=== PATIENT | male | born 1955 | race Caucasian/White ===

== ENCOUNTER 2017-02-16 16:43 | Inpatient (IN) | payer MEDICAID ==
[~2017-02-16] VITALS: Ht 175.3 cm; Wt 62.2 kg
[~2017-02-16 16:43] MED LIST: AMYL-13 PO; BENZ-196 PO; CLIN300C2 PO; ELA50 PO; FOLI1TAB19 PO; LANTUS SUBQ; LISI10TA11 PO; METF500T7 PO; METO25TA PO; OMEP20TC10 PO; SPIR25TA PO; TRAM50TA94 PO; [UNRECOGNIZED DRUG - CODE] PO
[2017-02-16 17:04] VITALS: BP 116/78
[2017-02-16 18:24] LABS: BASOPHILS # (AUTO) 0.1 K/uL (0.00-0.22); BASOPHILS % (AUTO) 1.5 % (0.0-2.0); EOSINOPHILS # (AUTO) 0.5 K/uL (0-0.4); EOSINOPHILS % (AUTO) 6.4 % (0.0-4.0); HEMATOCRIT 31.8 % (36-52); LYMPHOCYTES # (AUTO) 1.7 K/uL (2.0-11.5); MEAN CORPUSCULAR HEMOGLOBIN 26 pg (27-31); MEAN CORPUSCULAR HGB CONC 32 g/dL (33-37); MEAN CORPUSCULAR VOLUME 82 fL (80-94); MONOCYTES # (AUTO) 0.2 K/uL (0.8-1.0); MONOCYTES % (AUTO) 3.4 % (1.7-9.3); NEUTROPHILS # (AUTO) 4.7 K/uL (1.8-7.7); NEUTROPHILS % (AUTO) 64.7 % (42.2-75.2); PLATELET COUNT (AUTO) 645 K/uL (140-450); RED BLOOD CELL COUNT(AUTO) 3.89 MIL/uL (4.20-6.10); RED CELL DISTRIBUTION WIDTH 14.1 % (11.6-13.7); WHITE BLOOD COUNT (AUTO) 7.2 K/uL (4.8-10.8)
[2017-02-16 18:42] LABS: ALBUMIN 3.4 g/dL (3.4-5.0); ANION GAP 15.5 (8-16); CALCIUM 9.1 mg/dL (8.5-10.1); CARBON DIOXIDE 22.9 mmol/L (21-32); CREATININE 1.2 mg/dL (0.6-1.3); POTASSIUM 5.4 mmol/L (3.5-5.1); TOTAL BILIRUBIN 0.2 mg/dL (0.0-1.0); TOTAL PROTEIN, SERUM 7.5 g/dL (6.4-8.2)
[2017-02-16 18:44] LABS: PARTIAL THROMBOPLASTIN TIME 29.7 secs (22-35.6); PROTHROMBIN TIME 9.3 secs (10.8-13.4)
[2017-02-16 18:47] LABS: LACTIC ACID 2.3 mmol/L (0.4-2.0)
--- NOTE | 2017-02-16 18:55 | NUR ---
Patient ambulated to bed 05.
--- NOTE | 2017-02-16 19:04 | NUR ---
PER PATIENT CAME IN SUGGESTED BY WOUND RN WHO VISITS HIM TO GET ORDER FOR ANTIBIOTIC.PT WITH WOUND BILATERAL FEET WITH DRESSING DRY AND INTACT.
[2017-02-16] MEDS ORDERED: KETOROLAC 30 MG/ML VIAL IVP ONE (19:35)
[2017-02-16] MEDS ORDERED: PIPERACILLIN/TAZOBACTAM 3.375 GM in DEXTROSE 5% 50 ML IV ONE (19:35)
[2017-02-16] MEDS ORDERED: NACL 0.9% 2,000 ML IV ONE (19:35)
[2017-02-16] MEDS ORDERED: NACL 0.9% 500 ML IV ONE (19:45)
[2017-02-16] MEDS ORDERED: PIPERACILLIN/TAZOBACTAM 3.375 GM VIAL IV ONE (19:57)
--- NOTE | 2017-02-16 21:04 | NUR ---
Patient appears to be resting comfortably in bed. Vital Signs within normal limits. Respirations even and unlabored.
[2017-02-16] MEDS ORDERED: LORazepam 2 MG/ML VIAL IVP PRN (21:05)
[2017-02-16] MEDS ORDERED: HYDROcodone/APAP 5/325 MG 1 TAB TAB PO PRN (21:05)
[2017-02-16] MEDS ORDERED: ONDANSETRON 4 MG/2 ML VIAL IVP PRN (21:05)
[2017-02-16] MEDS ORDERED: MORPHINE SULFATE 2 MG/ML SYR IVP PRN (21:05)
--- NOTE | 2017-02-16 21:23 | NUR ---
Patient will be admitted to care of DR. PEARCE. Admited to TELE. Will go to room 109B. Belongings list completed. Report to CHERELLE ALVES.
--- NOTE | 2017-02-16 21:35 | NUR ---
Pt report given to CHERELLE ALVES. Transfer of care at this time.
[2017-02-16 21:38] VITALS: BP 153/87
--- NOTE | 2017-02-16 21:38 | NUR ---
RECEIVED REPORT FROM ED RN FOR CONTINUITY OF CARE. 61 Y.O. MALE ADMITTED WITH DX: LOWER EXTREMITY WOUND/HYPONATREMIA. PATIENT IS A&OX4, DISCUSSED PLAN OF CARE WITH PATIENT AND ORIENTED PT TO ROOM, VERBALIZED UNDERSTANDING. SHIFT ASSESSMENT DONE, VS TAKEN, STABLE. NO S/S OF RESPIRATORY DISTRESS NOTED ON ROOM AIR. PATIENT DENIES PAIN AT THIS TIME. PATIENT HAS WOUNDS TO BILATERAL LOWER EXTREMITY, DRESSING INTACT. NO DRAINAGE NOTED. IV TO LT AC 22 GAUGE PATENT AND INFUSING FLUIDS WELL. MRSA SWAB COLLECTED, WRISTBANDS APPLIED. CALL LIGHT PLACED WITHIN REACH. WILL CONTINUE TO MONITOR.
[2017-02-16] MEDS: NACL 0.9% 1,000 ML IV SCH (22:00)
--- NOTE | 2017-02-16 23:15 | NUR ---
SPOKE TO DR. RODAS REGARDING ORDERS, WILL FOLLOW OUT GIVEN.
[2017-02-16] MEDS ORDERED: INSULIN LISPRO SLIDING SCALE 100 UNITS/ML VIAL SUBQ PRN (23:25)
[2017-02-16] MEDS ORDERED: DEXTROSE 50% 50 ML SYR IVP PRN (23:30)
[2017-02-16] MEDS: AMITRIPTYLINE 50 MG TAB PO SCH (23:30)
[2017-02-16] MEDS: LISINOPRIL 10 MG TAB PO SCH (23:53)
[2017-02-16] MEDS ORDERED: LISINOPRIL 10 MG TAB ONE (23:54)
[2017-02-17] VITALS: BP 158/85
[2017-02-17] MEDS: BLOOD GLUCOSE MONITORING 1 DEV DEV FS SCH ×5 (00:30→20:47)
--- NOTE | 2017-02-17 00:32 | NUR ---
BLOOD SUGAR TAKEN, 127, NO COVERAGE NEEDED. PATIENT IS AWAKE WATCHING TV. NO S/S OF DISTRESS NOTED. CALL LIGHT WITHIN REACH.
[2017-02-17] MEDS: PIPERACILLIN/TAZOBACTAM 3.375 GM in DEXTROSE 5% 50 ML IV SCH ×2 (02:45→05:53)
--- NOTE | 2017-02-17 02:46 | NUR ---
DUE ANTIBIOTICS ADMINISTERED. NO S/S OF DISTRESS OR DISCOMFORT NOTED. WILL CONTINUE TO MONITOR.
[2017-02-17] MEDS ORDERED: PIPERACILLIN/TAZOBACTAM 3.375 GM VIAL IV ONE (02:48)
[2017-02-17] MEDS: KETOROLAC 15 MG/ML VIAL IVP PRN ×2 (02:56→19:44)
[2017-02-17 04:00] VITALS: BP 130/70
--- NOTE | 2017-02-17 04:30 | NUR ---
VS TAKEN, STABLE. PT DOES NOT WANT DRESSING CHANGED AT THIS TIME. CALL LIGHT WITHIN REACH.
--- NOTE | 2017-02-17 05:53 | NUR ---
BLOOD SUGAR TAKEN, 107, NO INSULIN COVERAGE NEEDED. WILL CONTINUE TO MONITOR.
[2017-02-17 06:04] LABS: BASOPHILS % (AUTO) 0.4 % (0.0-2.0); EOSINOPHILS # (AUTO) 0.6 K/uL (0-0.4); EOSINOPHILS % (AUTO) 8.3 % (0.0-4.0); HEMATOCRIT 27.5 % (36-52); HEMOGLOBIN 8.9 g/dL (12.0-18.0); LYMPHOCYTES # (AUTO) 2.8 K/uL (2.0-11.5); LYMPHOCYTES % (AUTO) 38.9 % (20.5-51.1); MEAN CORPUSCULAR HEMOGLOBIN 26 pg (27-31); MEAN CORPUSCULAR HGB CONC 32 g/dL (33-37); MEAN CORPUSCULAR VOLUME 82 fL (80-94); MONOCYTES # (AUTO) 0.5 K/uL (0.8-1.0); MONOCYTES % (AUTO) 7.1 % (1.7-9.3); NEUTROPHILS # (AUTO) 3.2 K/uL (1.8-7.7); NEUTROPHILS % (AUTO) 45.3 % (42.2-75.2); PLATELET COUNT (AUTO) 561 K/uL (140-450); RED BLOOD CELL COUNT(AUTO) 3.36 MIL/uL (4.20-6.10); RED CELL DISTRIBUTION WIDTH 14.4 % (11.6-13.7); WHITE BLOOD COUNT (AUTO) 7.1 K/uL (4.8-10.8)
[2017-02-17 07:12] LABS: ANION GAP 10.7 (8-16); CALCIUM 8.6 mg/dL (8.5-10.1); CREATININE 1.2 mg/dL (0.6-1.3); POTASSIUM 4.7 mmol/L (3.5-5.1)
--- NOTE | 2017-02-17 07:15 | NUR ---
ENDORSED PATIENT TO DAY RN FOR CONTINUITY OF CARE, PATIENT IS IN STABLE CONDITION.
--- NOTE | 2017-02-17 07:17 | NUR ---
RECEIVED REPORT FROM MANAGER TRADING, PT AWAKE ALERT OX4, RESP EVEN UNLABORED ON ROOM AIR, DENIES PAIN AT THIS TIME, BILAT LOWER EXT WOUNDS COVERED WITH DRESSING CLEAN DRY INTACT, IV SITE CLEAR, INFUSING WITHOUT PROBLEM, CALL HANLEY WITHIN REACH, ALL SAFETY MEASURES MET, PT DENIES ANY IMMEDIATE NEEDS, WILL CONTINUE TO MONITOR.
[2017-02-17 07:22] LABS: MAGNESIUM 1.4 mg/dL (1.8-2.4); PHOSPHORUS 5.1 mg/dL (2.5-4.9)
[2017-02-17 07:32] LABS: URIC ACID 4.3 mg/dL (2.6-7.2)
[2017-02-17 07:42] VITALS: BP 156/77
--- NOTE | 2017-02-17 07:57 | NUR ---
PATIENT HAS BEEN SCREENED AND CATEGORIZED HIGH NUTRITION RISK. PATIENT WILL BE SEEN WITHIN 1-2 DAYS OF ADMISSION. 02/17/17-02/18/[address]
[2017-02-17] MEDS: PANTOPRAZOLE 40 MG INJ VIAL IVP SCH (08:29)
[2017-02-17] MEDS: metFORMIN 500 MG TAB PO SCH ×2 (08:30→17:34)
[2017-02-17] MEDS: FOLIC ACID 1 MG TAB PO SCH (08:31)
[2017-02-17] MEDS: METOPROLOL 25 MG TAB PO SCH ×2 (08:31→20:42)
[2017-02-17] MEDS: SPIRONOLACTONE 25 MG TAB PO SCH ×2 (08:31→20:42)
[2017-02-17] MEDS: LISINOPRIL 10 MG TAB PO SCH (08:31)
[2017-02-17] MEDS: AMYLASE/LIPASE/PROTEASE 1 CAPDR PO SCH ×3 (08:32→17:35)
[2017-02-17] MEDS: NICOTINE TRANSD SYS 21 MG/24 HR PATCH TD SCH (08:36)
[2017-02-17] MEDS: NACL 0.9% 1,000 ML IV SCH (09:33)
--- NOTE | 2017-02-17 09:42 | NUR ---
PT RESTING QUIETLY IN NAD, REPORTS PAIN BETTER THAN BEFORE NOW 02/06, PT DENIES ANY IMMEDIATE NEEDS, PT AWARE OF NEEDING URINE SAMPLE IN CUP, CALL HANLEY WITHIN REACH, ALL SAFETY MEASURES MET, WILL CONTINUE TO MONITOR.
[2017-02-17] MEDS ORDERED: DEXTROSE 50% 50 ML SYR IVP PRN (10:25)
[2017-02-17 10:29] LABS: CHOL/HDL RATIO 4.4 (1-4.5)
--- NOTE | 2017-02-17 10:30 | NUR ---
WOUND CARE EVALUATION NOTES: REASON FOR EVALUATION: ACUTE/CHRONIC BLE ULCERS COMPLETE SKIN ASSESSMENT DONE ON THIS 61 Y/O MALE PATIENT FROM HOME TO [facility], WITH INITIAL DIAGNOSIS OF BLE WOUND, HYPONATREMIA AND HYPOKALEMIA. PAST MEDICAL HISTORY INCLUDE DIABETES, CHF, CHRONIC PANCREATITIS AND CHRONIC BLE DIABETIC FEET ULCERS. ALL ABOVE INFORMATION WAS OBTAINED FROM THE ADMISSION H&P AND THE PATIENT HIMSELF. LABS INCLUDE WBC 8.2, H/H 9.4/29.1, GLUCOSE 118, ALBUMIN 3.4, PT/INR 9.3/1.0 AND PTT 29.7. CURRENT MEDS INCLUDE MULTIVITAMINS, INSULIN, NORCO, ZOSYN, HEPARIN AND KETOROLAC. PATIENT IS AWAKE, ALERT, ORIENTED TO PERSON, PLACE, DATE AND TIME. SKIN WARM TO TOUCH WNL, TOENAILS ARE LONG, THICKENED AND DISCOLORED, NO EDEMA, NO HAIR GROWTH, BLE DRY AND FLAKY AND +1 BILATERAL PEDAL PULSES. URINE AND BOWEL CONTINENT, ABLE TO USE URINAL AND IS ABLE TO AMBULATE TO THE RESTROOM WELL CLAIMED. ABLE TO TURN SELF WITH NO ASSISTANCE. INITIAL PLAN OF CARE AND PRESSURE PREVENTIVE MEASURES DISCUSSED, ABLE TO VERBALIZE UNDERSTANDING. INTEGUMENTARY: BLE - MULTIPLE VENOUS STASIS ULCERS. FOR EXACT MEASUREMENTS AND DESCRIPTION, PLEASE REFER TO WOUND ASSESSMENT FLOWSHEET RECOMMENDATIONS: -CLEANSE BILATERAL LOWER EXTREMITTIES WITH WOUND CLEANSER, PAT DRY, APPLY THERAHONEY GEL, ADAPTIC, ABD PAD AND WRAP WITH ROSALIE Q DAY AND PRN WITH SOILING/DISPLACEMENT -TURN AND REPOSITION PATIENT Q2H -ASSESS AND MONITOR SKIN CONDITION DURING POSITION CHANGE, PLEASE PAY PARTICULAR ATTENTION TO SACRALCOCCYX, ELBOWS AND HEELS -OFFLOAD BILATERAL HEELS BY PLACING PILLOWS UNDER CALVES AT ALL TIMES, UNLESS OTHERWISE CONTRAINDICATED -KEEP SKIN CLEAN AND DRY AT ALL TIMES. -PODIATRY CONSULT IN PLACE. RECOMMENDATIONS DISCUSSED WITH PRIMARY RN AND RESIDENT PHYSICIAN, DR. SANTOS WILL FOLLOW UP PATIENT Q 7 DAYS AND PRN. PLEASE CONTACT [facility] FOR ANY CONCERNS, QUESTIONS AND CHANGES IN SKIN CONDITION.
[2017-02-17] MEDS ORDERED: MAG SULF 2000 MG/WATER PREMIX 50 ML IV SCH (10:35)
[2017-02-17 10:55] LABS: THYROID STIMULATING HORMONE 1.48 uIU/mL (0.34-3.76)
--- NOTE | 2017-02-17 11:17 | NUR ---
PT RESTING QUIETLY IN NAD, RESP EVEN UNLABORED ON ROOM AIR, NO C/O PAIN AT THIS TIME, URINE SAMPLE COLLECTED, MAGNESIUM STARTED PER ORDER, IV SITE CLEAR, CALL HANLEY WITHIN REACH, ALL SAFETY MEASURES ENSURED, WILL CONTINUE TO MONITOR.
[2017-02-17 12:00] VITALS: BP 145/76
[2017-02-17 12:14] LABS: APPEARANCE,URINE CLEAR (CLEAR); BILIRUBIN,URINE NEGATIVE (NEGATIVE); BLOOD, URINE NEGATIVE (NEGATIVE); COLOR,URINE YELLOW (YELLOW); LEUKOCYTE ESTERASE ,URINE NEGATIVE (NEGATIVE); NITRITE, URINE NEGATIVE (NEGATIVE); PROTEIN,URINE NEGATIVE (NEGATIVE); UGLUCOSE NEGATIVE (NEGATIVE); UROBILINOGEN,URINE 0.2 EU/dL (0.2 - 1)
[2017-02-17 12:36] LABS: AMPHETAMINE, URINE NEG. ng/ml (NEG <=1000); BARBITURATE, URINE NEG. ng/ml (NEG <=200); BENZODIAZEPINE, URINE NEG. ng/mL (NEG <=200); CANNABINOID, URINE NEG. ng/mL (NEG <=50); COCAINE, URINE NEG. ng/mL (NEG <=300); OPIATE, URINE NEG. ng/mL (NEG <=2000); PHENCYCLIDINE SCREEN,URINE NEG. ng/mL (NEG <=25)
[2017-02-17 12:49] LABS: BASOPHILS % (AUTO) 0.6 % (0.0-2.0); EOSINOPHILS # (AUTO) 0.5 K/uL (0-0.4); EOSINOPHILS % (AUTO) 5.6 % (0.0-4.0); HEMATOCRIT 29.1 % (36-52); HEMOGLOBIN 9.4 g/dL (12.0-18.0); LYMPHOCYTES # (AUTO) 1.5 K/uL (2.0-11.5); LYMPHOCYTES % (AUTO) 18.6 % (20.5-51.1); MEAN CORPUSCULAR HEMOGLOBIN 27 pg (27-31); MEAN CORPUSCULAR HGB CONC 32 g/dL (33-37); MEAN CORPUSCULAR VOLUME 82 fL (80-94); MONOCYTES # (AUTO) 0.4 K/uL (0.8-1.0); MONOCYTES % (AUTO) 4.5 % (1.7-9.3); NEUTROPHILS # (AUTO) 5.8 K/uL (1.8-7.7); NEUTROPHILS % (AUTO) 70.7 % (42.2-75.2); PLATELET COUNT (AUTO) 542 K/uL (140-450); RED BLOOD CELL COUNT(AUTO) 3.54 MIL/uL (4.20-6.10); RED CELL DISTRIBUTION WIDTH 14.3 % (11.6-13.7); WHITE BLOOD COUNT (AUTO) 8.2 K/uL (4.8-10.8)
[2017-02-17] MEDS: PIPER/TAZO 3.375GM/D5W PREMIX 50 ML IV SCH ×2 (13:11→17:37)
--- NOTE | 2017-02-17 13:15 | NUR ---
PT RESTING IN BED. NO S/S OF ACUTE DISTRESS. PT DENIES PAIN. IV SITE PATENT AND INTACT. CALL LIGHT WITHIN REACH. SAFETY MEASURES ENSURED. WILL CONTINUE TO MONITOR.
--- NOTE | 2017-02-17 13:26 | NUR ---
02/17/17 RD INITIAL ASSESSMENT COMPLETED PLEASE REFER TO NUTRITION ASSESSMENT UNDER CARE ACTIVITY FOR ESTIMATED NUTRITIONAL NEEDS. RD RECOMMENDATIONS: 1. CONTINUE ON SOFT CCHO 60 GM DIET TOLERATED. 2. INCREASE PROTEIN NEEDS FOR WOUND HEALING. 3. RD WILL F/U 3-5 DAYS; MODERATE RISK. ELBA ESCALONA RD
[2017-02-17 13:57] LABS: CALCIUM 8.7 mg/dL (8.5-10.1); CARBON DIOXIDE 23.6 mmol/L (21-32); CREATININE 1.1 mg/dL (0.6-1.3); POTASSIUM 5.6 mmol/L (3.5-5.1)
--- NOTE | 2017-02-17 14:22 | NUR ---
SPOKE WITH JOSE FROM [facility] . HE IS [facility] PATIENT. FAXED INITIAL REVIEW TO [phone] PHONE JOSE [phone]. RECEIVED CALL FROM OGALLALA FROM [facility]. THE PATIENT IS ON THEIR SERVICE PHONE [phone].
[2017-02-17] MEDS: HYDROcodone/APAP 5/325 MG 1 TAB TAB PO PRN ×2 (15:02→22:27)
[2017-02-17 16:00] VITALS: BP 131/97
--- NOTE | 2017-02-17 16:16 | NUR ---
PT RESTING IN BED. NO S/S OF ACUTE DISTRESS. PT DENIES PAIN. CALL LIGHT WITHIN REACH. SAFETY MEASURES ENSURED. WILL CONTINUE TO MONITOR.
[2017-02-17] MEDS ORDERED: THERAHONEY GEL 42.5 GM TP PRN (18:10)
[2017-02-17] MEDS ORDERED: THERAHONEY GEL 42.5 GM TP SCH (18:14)
--- NOTE | 2017-02-17 19:15 | NUR ---
ENDORSED PT CARE TO JBOSS ARCHITECT RN, PT REMAINS IN STABLE CONDITION.
--- NOTE | 2017-02-17 19:16 | NUR ---
RECEIVED REPORT FROM DAY RN FOR CONTINUITY OF CARE. PATIENT IS A&OX4, DISCUSSED PLAN OF CARE WITH PATIENT, VERBALIZED UNDERSTANDING. SHIFT ASSESSMENT DONE, VS TAKEN, STABLE. NO S/S OF RESPIRATORY DISTRESS NOTED ON ROOM AIR. PATIENT C/O LOWER EXTREMITY PAIN, WILL MEDICATE PER MD ORDER. IV TO LT AC 22 GAUGE PATENT AND FLUSHED. PATIENT HAS WOUNDS TO BILATERAL ANKLES AND FEET, DRESSING INTACT, NO DRAINAGE NOTED. CALL LIGHT PLACED WITHIN REACH. SAFETY PRECAUTIONS ENFORCED. WILL CONTINUE TO MONITOR.
[2017-02-17 20:00] VITALS: BP 140/74
[2017-02-17] MEDS: MAGNESIUM OXIDE 400 MG TAB PO SCH (20:41)
[2017-02-17] MEDS: AMITRIPTYLINE 50 MG TAB PO SCH (20:41)
--- NOTE | 2017-02-17 20:44 | NUR ---
DUE MEDICATIONS ADMINISTERED, TOLERATED WELL. BLOOD SUGAR 168, PT STATES HE DOES NOT WANT TO TAKE LEVEMIR, WILL ADMINISTER SLIDING SCALE COVERAGE AND REASSESS IN AM PER MD ORDER. CALL LIGHT WITHIN REACH. SAFETY PRECAUTIONS ENFORCED.
[2017-02-17] MEDS: INSULIN LISPRO SLIDING SCALE 100 UNITS/ML VIAL SUBQ PRN (20:51)
[2017-02-17] MEDS: INSULIN DETEMIR 100 UNITS/ML 10 ML VIAL SUBQ SCH (20:51)
[2017-02-17] MEDS ORDERED: SODIUM POLYSTYRENE 15 GM/60 ML UDBTL PO ONE (21:15)
--- NOTE | 2017-02-17 22:27 | NUR ---
PT C/O HEADACHE, MEDICATED PER MD ORDER. EMPTIED URINAL 400 ML LIGHT YELLOW URINE. CALL LIGHT WITHIN REACH. WILL CONTINUE TO MONITOR.
[2017-02-18] VITALS: BP 158/75
--- NOTE | 2017-02-18 00:12 | NUR ---
VS TAKEN. PATIENT IS ASLEEP. NO S/S OF DISTRESS OR DISCOMFORT NOTED. WILL CONTINUE TO MONITOR.
[2017-02-18] MEDS: PIPER/TAZO 3.375GM/D5W PREMIX 50 ML IV SCH ×5 (00:57→23:36)
[2017-02-18] MEDS: MORPHINE SULFATE 2 MG/ML SYR IVP PRN ×5 (01:42→21:28)
--- NOTE | 2017-02-18 01:48 | NUR ---
PT C/O 06/08 PAIN MEDICATED PER MD ORDER. CALL LIGHT WITHIN REACH.
[2017-02-18 04:00] VITALS: BP 138/70
--- NOTE | 2017-02-18 04:02 | NUR ---
VS TAKEN, STABLE. PATIENT IS SLEEPING. NO S/S OF DISTRESS OR DISCOMFORT NOTED. WILL CONTINUE TO MONITOR.
--- NOTE | 2017-02-18 06:00 | NUR ---
PT AMBULATING TO RESTROOM, HAD LARGE BOWEL MOVEMENT.
[2017-02-18 06:02] LABS: BASOPHILS % (AUTO) 0.6 % (0.0-2.0); EOSINOPHILS # (AUTO) 0.5 K/uL (0-0.4); EOSINOPHILS % (AUTO) 7.1 % (0.0-4.0); HEMATOCRIT 28.9 % (36-52); HEMOGLOBIN 9.2 g/dL (12.0-18.0); LYMPHOCYTES # (AUTO) 2.1 K/uL (2.0-11.5); LYMPHOCYTES % (AUTO) 27.5 % (20.5-51.1); MEAN CORPUSCULAR HEMOGLOBIN 26 pg (27-31); MEAN CORPUSCULAR HGB CONC 32 g/dL (33-37); MEAN CORPUSCULAR VOLUME 82 fL (80-94); MONOCYTES # (AUTO) 0.4 K/uL (0.8-1.0); MONOCYTES % (AUTO) 4.9 % (1.7-9.3); NEUTROPHILS # (AUTO) 4.5 K/uL (1.8-7.7); NEUTROPHILS % (AUTO) 59.9 % (42.2-75.2); PLATELET COUNT (AUTO) 556 K/uL (140-450); RED BLOOD CELL COUNT(AUTO) 3.51 MIL/uL (4.20-6.10); RED CELL DISTRIBUTION WIDTH 14.3 % (11.6-13.7); WHITE BLOOD COUNT (AUTO) 7.5 K/uL (4.8-10.8)
[2017-02-18] MEDS: BLOOD GLUCOSE MONITORING 1 DEV DEV FS SCH ×4 (06:21→20:27)
[2017-02-18 06:26] LABS: ANION GAP 13.8 (8-16); CARBON DIOXIDE 22.1 mmol/L (21-32); CREATININE 1.1 mg/dL (0.6-1.3); POTASSIUM 4.9 mmol/L (3.5-5.1)
[2017-02-18 06:31] LABS: MAGNESIUM 1.6 mg/dL (1.8-2.4); PHOSPHORUS 3.7 mg/dL (2.5-4.9)
--- NOTE | 2017-02-18 07:22 | NUR ---
ENDORSED PATIENT TO DAY RN FOR CONTINUITY OF CARE, PATIENT IS IN STABLE CONDITION.
--- NOTE | 2017-02-18 07:35 | NUR ---
RECEIVED REPORT FROM JOSELYN VILLARREAL. PT IS A/OX4, PT HAS BILATERAL LOWER EXT. WOUNDS, DRESSING IS DRY, INTACT, IV ON THE LEFT FA, PATENT, INTACT, FLUSHING WELL, NO S/S OF RESPIRATORY DISTRESS OR DISCOMFORT NOTED, SAFETY/FALL PRECAUTIONS ARE IN PLACE, DISCUSSED PLAN OF CARE WITH PT, PT VERBALIZED UNDERSTANDING, CALL LIGHT IS WITHIN REACH, WILL CONTINUE TO MONITOR.
[2017-02-18 08:00] VITALS: BP 150/76
[2017-02-18] MEDS: metFORMIN 500 MG TAB PO SCH ×2 (08:00→17:00)
[2017-02-18] MEDS: MAGNESIUM OXIDE 400 MG TAB PO SCH ×2 (08:17→20:21)
[2017-02-18] MEDS: SPIRONOLACTONE 25 MG TAB PO SCH ×2 (08:17→20:20)
[2017-02-18] MEDS: FOLIC ACID 1 MG TAB PO SCH (08:18)
[2017-02-18] MEDS: LISINOPRIL 10 MG TAB PO SCH (08:18)
[2017-02-18] MEDS: MULTIVITAMIN/MINERALS 1 TAB PO SCH (08:19)
[2017-02-18] MEDS: METOPROLOL 25 MG TAB PO SCH ×2 (08:19→20:20)
[2017-02-18] MEDS: AMYLASE/LIPASE/PROTEASE 1 CAPDR PO SCH ×3 (08:19→17:04)
[2017-02-18] MEDS: PANTOPRAZOLE 40 MG INJ VIAL IVP SCH (08:20)
[2017-02-18] MEDS: NICOTINE TRANSD SYS 21 MG/24 HR PATCH TD SCH (08:32)
[2017-02-18] MEDS: THERAHONEY GEL 42.5 GM TP SCH (08:33)
[2017-02-18] MEDS ORDERED: MAG SULF 2000 MG/WATER PREMIX 50 ML IV SCH (08:35)
[2017-02-18] MEDS: NACL 0.9% 500 ML IV SCH ×3 (08:35→20:49)
--- NOTE | 2017-02-18 09:45 | NUR ---
PT SITTING IN BED WATCHING TV, ALL NEEDS ARE MET, CALL LIGHT WITHIN REACH, WILL CONTINUE TO MONITOR.
[2017-02-18] MEDS: SODIUM CHLORIDE 1 GM TAB PO SCH ×2 (10:01→20:21)
--- NOTE | 2017-02-18 11:49 | NUR ---
PT COMPLAINED OF PAIN IN BOTH ANKLES, 8/10 PAIN LEVEL, WILL MEDICATE PT WITH PRN PAIN MEDICATION AT THIS TIME.
[2017-02-18 12:00] VITALS: BP 155/81
--- NOTE | 2017-02-18 13:00 | NUR ---
BILATERAL LOWER EXT. DRESSING CHANGED, MILD DRAINAGE, PT TOLERATED WELL, NO S/S OF RESPIRATORY DISTRESS OR DISCOMFORT NOTED, CALL LIGHT WITHIN REACH, WILL CONTINUE TO MONITOR.
--- NOTE | 2017-02-18 15:27 | NUR ---
ASSISTED PT TO THE RESTROOM AND BACK INTO BED, CALL LIGHT WITHIN REACH.
[2017-02-18 16:00] VITALS: BP 149/73
--- NOTE | 2017-02-18 17:45 | NUR ---
PT SITTING AT BEDSIDE EATING DINNER, CALL LIGHT WITHIN REACH.
--- NOTE | 2017-02-18 19:10 | NUR ---
ENDORSED PT TO JOSELYN OZUNA. FOR CONTINUITY OF CARE, PT STABLE AT THIS TIME.
--- NOTE | 2017-02-18 19:30 | NUR ---
RECEIVED REPORT FROM ADIN ALVES AT BEDSIDE. PT IS ALERT AWAKE ORIENTED X4. INITIAL ASSESSMENT DONE. NO S/S OF RESPIRATORY DISTRESS OR SOB NOTED. NO C/O PAIN OR ANY DISCOMFORT AT THIS TIME. PLAN OF CARE REVIEWED TO PT AND VERBALIZED UNDERSTANDING. CALL LIGHT WITHIN REACH. WILL CONTINUE TO MONITOR.
[2017-02-18 20:00] VITALS: BP 146/71
[2017-02-18] MEDS: AMITRIPTYLINE 50 MG TAB PO SCH (20:20)
[2017-02-18] MEDS: INSULIN LISPRO SLIDING SCALE 100 UNITS/ML VIAL SUBQ PRN (20:29)
[2017-02-18] MEDS: INSULIN DETEMIR 100 UNITS/ML 10 ML VIAL SUBQ SCH (20:30)
[2017-02-19] VITALS: BP 139/74
--- NOTE | 2017-02-19 00:40 | NUR ---
PT IS SLEEPING RIGHT NOW BUT EASILY AROUSABLE. NO S/S OF ANY DISCOMFORT AT THIS TIME. ALL NEEDS ARE ATTENDED. CALL LIGHT WITHIN REACH. WILL CONTINUE TO MONITOR.
[2017-02-19] MEDS: NACL 0.9% 500 ML IV SCH ×2 (03:20→09:15)
[2017-02-19 04:00] VITALS: BP 135/76
[2017-02-19] MEDS: PIPER/TAZO 3.375GM/D5W PREMIX 50 ML IV SCH ×3 (05:06→17:17)
--- NOTE | 2017-02-19 05:45 | NUR ---
AM CARE RENDERED. BED LINEN CHANGED. INSTRUCTED PT TO REPOSITION. KEPT CLEAN AND DRY. CALL LIGHT WITHIN REACH. WILL CONTINUE TO MONITOR.
[2017-02-19] MEDS: BLOOD GLUCOSE MONITORING 1 DEV DEV FS SCH ×4 (06:20→20:43)
--- NOTE | 2017-02-19 06:21 | NUR ---
CHECK BS AND THE RESULT IS 36. ADMINISTERED D50 50ML ORDERED. CHECKED BS AGAIN AND THE RESULT IS 222. CHARGE NURSE ADELINA NOTIFIED. WILL CONTINUE TO MONITOR.
[2017-02-19 06:47] LABS: ANION GAP 10.6 (8-16); CALCIUM 8.6 mg/dL (8.5-10.1); CARBON DIOXIDE 29.2 mmol/L (21-32); CREATININE 1.1 mg/dL (0.6-1.3); POTASSIUM 4.8 mmol/L (3.5-5.1)
[2017-02-19 06:48] LABS: BASOPHILS % (AUTO) 0.4 % (0.0-2.0); EOSINOPHILS # (AUTO) 0.1 K/uL (0-0.4); EOSINOPHILS % (AUTO) 1.6 % (0.0-4.0); HEMATOCRIT 29.9 % (36-52); HEMOGLOBIN 9.5 g/dL (12.0-18.0); LYMPHOCYTES % (AUTO) 14.9 % (20.5-51.1); MEAN CORPUSCULAR HEMOGLOBIN 26 pg (27-31); MEAN CORPUSCULAR HGB CONC 32 g/dL (33-37); MEAN CORPUSCULAR VOLUME 82 fL (80-94); MONOCYTES # (AUTO) 0.4 K/uL (0.8-1.0); MONOCYTES % (AUTO) 6.8 % (1.7-9.3); NEUTROPHILS # (AUTO) 5.1 K/uL (1.8-7.7); NEUTROPHILS % (AUTO) 76.3 % (42.2-75.2); PHOSPHORUS 4.1 mg/dL (2.5-4.9); PLATELET COUNT (AUTO) 599 K/uL (140-450); RED BLOOD CELL COUNT(AUTO) 3.64 MIL/uL (4.20-6.10); RED CELL DISTRIBUTION WIDTH 14.7 % (11.6-13.7); WHITE BLOOD COUNT (AUTO) 6.6 K/uL (4.8-10.8)
--- NOTE | 2017-02-19 07:20 | NUR ---
PT HAS NO S/S OF ANY DISCOMFORT. PLAN OF CARE ENDORSE TO AM SHIFT NURSE FOR CONTINUITY OF CARE.
--- NOTE | 2017-02-19 07:25 | NUR ---
RECEIVED REPORT FROM JOSELYN OZUNA. PT IS A/OX4, PT HAS BILATERAL LOWER EXT. WOUNDS, DRESSING IS DRY, INTACT, IV ON THE LEFT FA, PATENT, INTACT, FLUSHING WELL, INITIAL ASSESSMENT DONE, NO S/S OF RESPIRATORY DISTRESS OR DISCOMFORT NOTED, SAFETY/FALL PRECAUTIONS ARE IN PLACE, DISCUSSED PLAN OF CARE WITH PT, PT VERBALIZED UNDERSTANDING, CALL LIGHT IS WITHIN REACH, WILL CONTINUE TO MONITOR.
[2017-02-19 08:00] VITALS: BP 114/58
[2017-02-19] MEDS: metFORMIN 500 MG TAB PO SCH ×2 (08:00→17:00)
[2017-02-19] MEDS: LISINOPRIL 10 MG TAB PO SCH (08:09)
[2017-02-19] MEDS: MULTIVITAMIN/MINERALS 1 TAB PO SCH (08:13)
[2017-02-19] MEDS: FOLIC ACID 1 MG TAB PO SCH (08:15)
[2017-02-19] MEDS: MAGNESIUM OXIDE 400 MG TAB PO SCH ×2 (08:15→20:18)
[2017-02-19] MEDS: AMYLASE/LIPASE/PROTEASE 1 CAPDR PO SCH ×3 (08:15→17:18)
[2017-02-19] MEDS: SPIRONOLACTONE 25 MG TAB PO SCH ×2 (08:19→20:17)
[2017-02-19] MEDS: NICOTINE TRANSD SYS 21 MG/24 HR PATCH TD SCH (08:23)
[2017-02-19] MEDS: SODIUM CHLORIDE 1 GM TAB PO SCH (08:23)
[2017-02-19] MEDS: PANTOPRAZOLE 40 MG INJ VIAL IVP SCH (08:24)
[2017-02-19] MEDS: METOPROLOL 25 MG TAB PO SCH ×2 (08:40→20:18)
[2017-02-19] MEDS: THERAHONEY GEL 42.5 GM TP SCH (08:41)
--- NOTE | 2017-02-19 09:30 | NUR ---
PT RESTING IN BED, NO S/S OF RESPIRATORY DISTRESS OR DISCOMFORT NOTED, CALL LIGHT WITHIN REACH, WILL CONTINUE TO MONITOR.
[2017-02-19] MEDS: MORPHINE SULFATE 2 MG/ML SYR IVP PRN ×3 (09:35→22:48)
[2017-02-19 10:13] LABS: TRANSFERRIN 293 mg/dL (200-370)
[2017-02-19 12:00] VITALS: BP 165/83
--- NOTE | 2017-02-19 12:00 | NUR ---
PT COMPLAINED OF PAIN AT TH IV SITE, IV ON LT AC REMOVED, CATHETER TIP INTACT, NEW IV STARTED ON THE LEFT HAND.
[2017-02-19] MEDS: INSULIN LISPRO SLIDING SCALE 100 UNITS/ML VIAL SUBQ PRN ×3 (12:54→20:44)
--- NOTE | 2017-02-19 13:50 | NUR ---
PT RESTING IN BED, WATCHING TV, CALL LIGHT IS WITHIN REACH.
--- NOTE | 2017-02-19 15:30 | NUR ---
PT RESTING IN BED WATCHING TV, ALL NEEDS ARE MET AT THIS TIME, CALL LIGHT WITHIN REACH, WILL CONTINUE TO MONITOR.
[2017-02-19 16:00] VITALS: BP 144/72
--- NOTE | 2017-02-19 17:50 | NUR ---
PT SITTING IN BED WATCHING TV, CALL LIGHT WITHIN REACH.
--- NOTE | 2017-02-19 19:25 | NUR ---
ENDORSED PT TO JOSELYN OZUNA. FOR CONTINUITY OF CARE, PT STABLE AT THIS TIME.
[2017-02-19 20:00] VITALS: BP 146/69
[2017-02-19] MEDS: AMITRIPTYLINE 50 MG TAB PO SCH (20:17)
[2017-02-20] VITALS: BP 136/71
[2017-02-20] MEDS: DEXT 5% /NACL 0.9% 1,000 ML IV SCH ×2 (00:12→12:35)
[2017-02-20] MEDS: PIPER/TAZO 3.375GM/D5W PREMIX 50 ML IV SCH ×5 (00:12→23:43)
[2017-02-20 04:00] VITALS: BP 138/74
--- NOTE | 2017-02-20 05:30 | NUR ---
AM CARE RENDERED. BED LINEN CHANGED. INSTRUCTED PT TO REPOSITION. KEPT CLEAN AND DRY. CALL LIGHT WITHIN REACH. WILL CONTINUE TO MONITOR.
[2017-02-20 06:00] LABS: BASOPHILS # (AUTO) 0.1 K/uL (0.00-0.22); BASOPHILS % (AUTO) 1.1 % (0.0-2.0); EOSINOPHILS # (AUTO) 0.5 K/uL (0-0.4); EOSINOPHILS % (AUTO) 7.1 % (0.0-4.0); HEMATOCRIT 27.5 % (36-52); HEMOGLOBIN 8.9 g/dL (12.0-18.0); LYMPHOCYTES % (AUTO) 15.3 % (20.5-51.1); MEAN CORPUSCULAR HEMOGLOBIN 26 pg (27-31); MEAN CORPUSCULAR HGB CONC 32 g/dL (33-37); MEAN CORPUSCULAR VOLUME 81 fL (80-94); MONOCYTES # (AUTO) 0.6 K/uL (0.8-1.0); MONOCYTES % (AUTO) 8.7 % (1.7-9.3); NEUTROPHILS # (AUTO) 4.6 K/uL (1.8-7.7); NEUTROPHILS % (AUTO) 67.8 % (42.2-75.2); PLATELET COUNT (AUTO) 553 K/uL (140-450); RED BLOOD CELL COUNT(AUTO) 3.38 MIL/uL (4.20-6.10); RED CELL DISTRIBUTION WIDTH 14.6 % (11.6-13.7); WHITE BLOOD COUNT (AUTO) 6.8 K/uL (4.8-10.8)
[2017-02-20 06:11] LABS: ANION GAP 11.1 (8-16); CALCIUM 8.7 mg/dL (8.5-10.1); CARBON DIOXIDE 27.5 mmol/L (21-32); POTASSIUM 4.6 mmol/L (3.5-5.1)
[2017-02-20 06:16] LABS: PARTIAL THROMBOPLASTIN TIME 27.8 secs (22-35.6); PROTHROMBIN TIME 9.6 secs (10.8-13.4)
[2017-02-20] MEDS: BLOOD GLUCOSE MONITORING 1 DEV DEV FS SCH ×4 (06:34→21:07)
[2017-02-20 06:41] LABS: MAGNESIUM 1.7 mg/dL (1.8-2.4)
--- NOTE | 2017-02-20 07:11 | NUR ---
PT HAS NO S/S OF ANY DISCOMFORT. PLAN OF CARE ENDORSE TO AM SHIFT NURSE FOR CONTINUITY OF CARE.
--- NOTE | 2017-02-20 07:15 | NUR ---
RECEIVED REPORT FROM JOSELYN OZUNA. PT IS A/OX4, PT HAS BILATERAL LOWER EXT. WOUNDS, DRESSING IS DRY, INTACT, IV ON THE LEFT HAND, PATENT, INTACT, FLUSHING WELL, INITIAL ASSESSMENT DONE, NO S/S OF RESPIRATORY DISTRESS OR DISCOMFORT NOTED, SAFETY/FALL PRECAUTIONS ARE IN PLACE, DISCUSSED PLAN OF CARE WITH PT, PT VERBALIZED UNDERSTANDING, CALL LIGHT IS WITHIN REACH, WILL CONTINUE TO MONITOR.
[2017-02-20 08:00] VITALS: BP 156/70
[2017-02-20] MEDS: AMYLASE/LIPASE/PROTEASE 1 CAPDR PO SCH ×3 (08:00→17:18)
[2017-02-20] MEDS ORDERED: NACL 0.9% 500 ML IV SCH (08:35)
[2017-02-20] MEDS: NICOTINE TRANSD SYS 21 MG/24 HR PATCH TD SCH (08:40)
[2017-02-20] MEDS: PANTOPRAZOLE 40 MG INJ VIAL IVP SCH (08:40)
--- NOTE | 2017-02-20 08:40 | NUR ---
DUE MEDS GIVEN, ORAL MEDICATIONS HELD SINCE PT IS NPO, PT TOLERATED WELL, CALL LIGHT WITHIN REACH, WILL CONTINUE TO MONITOR.
[2017-02-20] MEDS: MORPHINE SULFATE 2 MG/ML SYR IVP PRN (08:41)
[2017-02-20] MEDS: METOPROLOL 25 MG TAB PO SCH ×2 (09:00→21:04)
[2017-02-20] MEDS: MAGNESIUM OXIDE 400 MG TAB PO SCH ×2 (09:00→21:04)
[2017-02-20] MEDS: MULTIVITAMIN/MINERALS 1 TAB PO SCH (09:00)
[2017-02-20] MEDS ORDERED: MAG SULF 2000 MG/WATER PREMIX 50 ML IV SCH (09:00)
[2017-02-20] MEDS: INSULIN DETEMIR 100 UNITS/ML 10 ML VIAL SUBQ SCH (09:00)
[2017-02-20] MEDS: FOLIC ACID 1 MG TAB PO SCH (09:00)
[2017-02-20] MEDS: THERAHONEY GEL 42.5 GM TP SCH (09:00)
[2017-02-20] MEDS: SPIRONOLACTONE 25 MG TAB PO SCH ×2 (09:00→21:05)
[2017-02-20] MEDS: LISINOPRIL 10 MG TAB PO SCH (09:00)
--- NOTE | 2017-02-20 10:30 | NUR ---
PT RESTING IN BED WATCHING TV, CALL LIGHT WITHIN REACH, WILL CONTINUE TO MONITOR.
--- NOTE | 2017-02-20 11:17 | NUR ---
PT IS OFF UNIT, TAKEN TO OR FOR PROCEDURE.
[2017-02-20] MEDS ORDERED: BUPIVACAINE-MPF 0.25% 30 ML VIAL INJ ONE (11:37)
--- NOTE | 2017-02-20 12:18 | NUR ---
FAXED CONCURRENT REVIEW TO [facility] [phone] PHONE JOSE [phone]
[2017-02-20] MEDS ORDERED: PROPOFOL 200 MG/20 ML VIAL IV ONE (12:40)
[2017-02-20] MEDS ORDERED: ONDANSETRON 4 MG/2 ML VIAL ONE (12:40)
[2017-02-20] MEDS ORDERED: SEVOFLURANE 250 ML BTL INH ONE (12:40)
[2017-02-20] MEDS ORDERED: fentaNYL 0.05 MG/ML VIAL ONE (12:42)
[2017-02-20] MEDS ORDERED: HYDROmorphone 1 MG/ML AMP IVP PRN (13:00)
[2017-02-20] MEDS ORDERED: ONDANSETRON 4 MG/2 ML VIAL IVP PRN (13:00)
[2017-02-20] MEDS ORDERED: BUPIVACAINE-MPF 0.5% 30 ML VIAL INJ ONE (13:01)
[2017-02-20 14:35] VITALS: BP 155/78
--- NOTE | 2017-02-20 14:35 | NUR ---
PT RETURNED TO UNIT FROM OR S/P BILATERAL FOOT DEBRIDEMENT. RECEIVED REPORT FROM JOSELYN BYRNE.
[2017-02-20] MEDS ORDERED: MORPHINE SULFATE 2 MG/ML SYR IVP PRN (14:40)
--- NOTE | 2017-02-20 15:00 | NUR ---
PT ENDORSED TO LISETTE RN. FOR CONTINUITY OF CARE. PT STABLE AT THIS TIME.
--- NOTE | 2017-02-20 19:22 | NUR ---
REPORT GIVEN TO SYSTEM INTEGRATION ENGINEER RN, PT REMAINS IN STABLE CONDITION.
--- NOTE | 2017-02-20 19:35 | NUR ---
RECEIVED FROM AM RN IN BED . VISITORS AROUND. VERBALIZING WELL AND SITTING UP IN BED. RE-ORIENTED TO CALL LIGHT USE FOR ANY HELP HE MAY NEED OR IF IN PAIN. A/O X 4. CARE PLANS FOR THE NIGHT DISCUSSED WITH HIM. DRESSING TO LOWER EXTREMITIES IN PLACE, INTACT AND NO BLEEDING.
[2017-02-20 20:12] VITALS: BP 150/80
[2017-02-20] MEDS: AMITRIPTYLINE 50 MG TAB PO SCH (21:05)
[2017-02-20] MEDS: INSULIN LISPRO SLIDING SCALE 100 UNITS/ML VIAL SUBQ PRN (21:13)
--- NOTE | 2017-02-20 22:37 | NUR ---
NO NOTED ADVERSE REACTIONS TO MORPHINE IVP GIVEN EARLIER. SLEEPING AT THIS TIME. WAKES UP EASILY WHEN TOUCHED. NO FURTHER COMPLAINTS OF PAIN DONE.
[2017-02-20 23:24] VITALS: BP 134/70
--- NOTE | 2017-02-20 23:48 | NUR ---
STILL AWAKE AND WATCHING TV. NO FURTHER COMPLAINT OF PAIN DONE AT THIS TIME. COMFORTABLE. USES CALL LIGHT FOR HELP OR IF IN PAIN.
[2017-02-21 00:10] VITALS: BP 134/70
[2017-02-21] MEDS ORDERED: HYDROcodone/APAP 5/325 MG 1 TAB TAB ONE (00:53)
[2017-02-21] MEDS: HYDROcodone/APAP 5/325 MG 1 TAB TAB PO PRN ×4 (00:54→20:19)
--- NOTE | 2017-02-21 00:56 | NUR ---
AWAKE AND REQUESTED FOR PAIN RELIEVER. WILL MEDICATE REQUESTED.
[2017-02-21] MEDS: DEXT 5% /NACL 0.9% 1,000 ML IV SCH ×2 (01:00→06:10)
--- NOTE | 2017-02-21 03:54 | NUR ---
SLEEPING . NO RESTLESSNESS. CALL LIGHT WITH IN REACH.
[2017-02-21] MEDS: BLOOD GLUCOSE MONITORING 1 DEV DEV FS SCH ×4 (05:55→20:48)
[2017-02-21] MEDS: INSULIN LISPRO SLIDING SCALE 100 UNITS/ML VIAL SUBQ PRN ×3 (05:55→20:52)
[2017-02-21] MEDS: PIPER/TAZO 3.375GM/D5W PREMIX 50 ML IV SCH ×3 (05:56→17:37)
[2017-02-21 06:14] LABS: FOLIC ACID > 20.00 ng/mL (>3.0)
--- NOTE | 2017-02-21 06:41 | NUR ---
SLEEPING STILL AT THIS TIME. WAKES UP EASILY WHEN CALLED BY NAME. NO COMPLAINTS DONE. NEEDS MET. USES CALL LIGHT FOR HELP. HUMALOG INSULIN 2 UNITS GIVEN FOR COVERAGE. VERBALIZES WELL. DRESSINGS TO LOWER EXTREMITIES INTACT AND NO BLEEDING.
[2017-02-21 06:51] LABS: BASOPHILS # (AUTO) 0.1 K/uL (0.00-0.22); BASOPHILS % (AUTO) 1.2 % (0.0-2.0); EOSINOPHILS # (AUTO) 0.6 K/uL (0-0.4); HEMATOCRIT 25.9 % (36-52); HEMOGLOBIN 8.5 g/dL (12.0-18.0); LYMPHOCYTES # (AUTO) 1.3 K/uL (2.0-11.5); LYMPHOCYTES % (AUTO) 20.8 % (20.5-51.1); MEAN CORPUSCULAR HEMOGLOBIN 27 pg (27-31); MEAN CORPUSCULAR HGB CONC 33 g/dL (33-37); MEAN CORPUSCULAR VOLUME 82 fL (80-94); MONOCYTES # (AUTO) 0.7 K/uL (0.8-1.0); MONOCYTES % (AUTO) 11.7 % (1.7-9.3); NEUTROPHILS # (AUTO) 3.7 K/uL (1.8-7.7); NEUTROPHILS % (AUTO) 57.3 % (42.2-75.2); PLATELET COUNT (AUTO) 513 K/uL (140-450); RED BLOOD CELL COUNT(AUTO) 3.16 MIL/uL (4.20-6.10); RED CELL DISTRIBUTION WIDTH 15.1 % (11.6-13.7); WHITE BLOOD COUNT (AUTO) 6.4 K/uL (4.8-10.8)
[2017-02-21 07:17] LABS: ANION GAP 9.7 (8-16); CALCIUM 8.5 mg/dL (8.5-10.1); CREATININE 1.1 mg/dL (0.6-1.3); POTASSIUM 4.7 mmol/L (3.5-5.1)
--- NOTE | 2017-02-21 07:20 | NUR ---
REPORT RECEIVED FROM VASU RN AT BEDSIDE. PT SLEEPING BUT WAS EASILY ROUSABLE. PT VOICED NOC/O PAIN AT THIS TIME AND WAS IN NO DISTRESS. DRESSINGS TO BLE CLEAN, DRY AND INTACT. SHIFT ASSESSMENT DONE AND CHARTED. PLAN OF CARE, MEDS, TREATMENTS AND SAFETY DISCUSSED WITH PT AND PT VERBALIZED UNDERSTANDING. WILL CONTINUE TO CHECK ON PT.
[2017-02-21 07:27] LABS: MAGNESIUM 2.2 mg/dL (1.8-2.4); PHOSPHORUS 3.4 mg/dL (2.5-4.9)
[2017-02-21 07:55] VITALS: BP 120/61
[2017-02-21] MEDS: PANTOPRAZOLE 40 MG INJ VIAL IVP SCH (08:29)
[2017-02-21] MEDS: LISINOPRIL 10 MG TAB PO SCH (08:29)
[2017-02-21] MEDS: NICOTINE TRANSD SYS 21 MG/24 HR PATCH TD SCH (08:29)
[2017-02-21] MEDS: AMYLASE/LIPASE/PROTEASE 1 CAPDR PO SCH ×3 (08:30→17:35)
[2017-02-21] MEDS: FOLIC ACID 1 MG TAB PO SCH (08:30)
[2017-02-21] MEDS: MULTIVITAMIN/MINERALS 1 TAB PO SCH (08:30)
[2017-02-21] MEDS: MAGNESIUM OXIDE 400 MG TAB PO SCH ×2 (08:31→20:47)
[2017-02-21] MEDS: METOPROLOL 25 MG TAB PO SCH ×2 (08:31→20:47)
[2017-02-21] MEDS: SPIRONOLACTONE 25 MG TAB PO SCH ×2 (08:31→20:48)
[2017-02-21] MEDS: THERAHONEY GEL 42.5 GM TP SCH (09:00)
[2017-02-21] MEDS ORDERED: traMADol 50 MG TAB PO SCH (09:00)
[2017-02-21] MEDS ORDERED: traMADol 50 MG TAB PO PRN (09:00)
[2017-02-21] MEDS: INSULIN DETEMIR 100 UNITS/ML 10 ML VIAL SUBQ SCH (09:30)
--- NOTE | 2017-02-21 09:30 | NUR ---
PT TOOK DIET, FLUIDS AND PO MEDS WELL. PT VOICED NO C/O PAIN AT THIS TIME.
--- NOTE | 2017-02-21 11:33 | NUR ---
PT NOTED TO BE COMING OUT IN THE BR AND AMBULATING IN THE ROOM WITH STEADY GAIT. DRESSINGS TO BLE CLEAN, DRY AND INTACT.
--- NOTE | 2017-02-21 11:59 | NUR ---
FAXED CONCURRENT REVIEW TO [facility] [phone] PHONE JOSE [phone]
[2017-02-21 13:11] LABS: FERRITIN 15 ng/mL (30-400)
[2017-02-21] MEDS ORDERED: SODIUM CHLORIDE 1 GM TAB PO SCH (14:15)
--- NOTE | 2017-02-21 14:30 | NUR ---
PT WAS SEEN BY DR. PERALTA AND LEFT NEW ORDERS.
[2017-02-21] MEDS ORDERED: FUROSEMIDE 20 MG/2 ML VIAL IVP SCH (14:31)
[2017-02-21] MEDS ORDERED: FUROSEMIDE 40 MG/4 ML VIAL IVP SCH (14:35)
[2017-02-21 16:00] VITALS: BP 121/69
--- NOTE | 2017-02-21 17:00 | NUR ---
CLARIFIED LASIX ORDERS WITH DR. ABRAMS. DR. ABRAMS STATED THAT IT WAS NOT TO GIVE THE LASIX 20 MG IV ORDERED. PT SITTING IN BED COMFORTABLY AND VOICED NO C/O PAIN/ DISCOMFORT AT THIS TIME.
[2017-02-21] MEDS ORDERED: PIPER/TAZO 3.375GM/D5W PREMIX 50 ML IV SCH (18:00)
--- NOTE | 2017-02-21 18:33 | NUR ---
PT TOOK DIET AND FLUIDS WELL. PT SITTING AT SIDE OF BED. NO CHANGES NOTED IN PT'S CONDITION.
--- NOTE | 2017-02-21 19:17 | NUR ---
REPORT GIVEN TO VASU RN AT BEDSIDE. NO CHANGES NOTED IN PT'S CONDITION.
--- NOTE | 2017-02-21 19:31 | NUR ---
REPORT RECEIVED FROM AM RN IN BED SLEEPING. WAKES UP EASILY WHEN TOUCHED. NO COMPLAINTS OF ANY PAIN AT THIS TIME. NO RESTLESSNESS. CALL LIGHT WITH IN REACH. A/O X 4. DRESSINGS TO BILATERAL EXTREMITIES INTACT AND DRY. IVF SITE TO LH#22 INTACT AND NO INFILTRATION NOTED. CARE PLANS FOR THE NIGHT DISCUSSED WITH HIM.
[2017-02-21] MEDS: AMITRIPTYLINE 50 MG TAB PO SCH (20:48)
--- NOTE | 2017-02-21 23:03 | NUR ---
SLEEPING WELL. NO COMPLAINTS DONE.CALL LIGHT WITH IN REACH. A/O X 4.
[2017-02-21 23:58] VITALS: BP 133/65
[2017-02-22] MEDS: PIPER/TAZO 3.375GM/D5W PREMIX 50 ML IV SCH ×3 (00:10→12:00)
--- NOTE | 2017-02-22 01:43 | NUR ---
SLEEPING. NO RESTLESSNESS.
[2017-02-22] MEDS: DEXT 5% /NACL 0.9% 1,000 ML IV SCH (03:48)
--- NOTE | 2017-02-22 03:51 | NUR ---
PT. SLEEPING GOOD. ABLE TO USE CALL LIGHT FOR HELP.
[2017-02-22] MEDS: HYDROcodone/APAP 5/325 MG 1 TAB TAB PO PRN ×2 (04:14→09:52)
--- NOTE | 2017-02-22 04:15 | NUR ---
PT. WOKE U[ AND ASKED FOR PAIN RELIEVER. MEDICATED REQUESTED. A/O X 4. VERBALIZES WELL.
[2017-02-22] MEDS: BLOOD GLUCOSE MONITORING 1 DEV DEV FS SCH ×2 (05:31→11:30)
[2017-02-22 06:34] LABS: BASOPHILS % (AUTO) 0.8 % (0.0-2.0); EOSINOPHILS # (AUTO) 0.7 K/uL (0-0.4); EOSINOPHILS % (AUTO) 12.2 % (0.0-4.0); HEMATOCRIT 27.6 % (36-52); HEMOGLOBIN 8.9 g/dL (12.0-18.0); MEAN CORPUSCULAR HEMOGLOBIN 27 pg (27-31); MEAN CORPUSCULAR HGB CONC 32 g/dL (33-37); MEAN CORPUSCULAR VOLUME 82 fL (80-94); MONOCYTES # (AUTO) 0.7 K/uL (0.8-1.0); MONOCYTES % (AUTO) 13.6 % (1.7-9.3); NEUTROPHILS # (AUTO) 3.1 K/uL (1.8-7.7); NEUTROPHILS % (AUTO) 54.4 % (42.2-75.2); PLATELET COUNT (AUTO) 522 K/uL (140-450); RED BLOOD CELL COUNT(AUTO) 3.37 MIL/uL (4.20-6.10); RED CELL DISTRIBUTION WIDTH 14.8 % (11.6-13.7); WHITE BLOOD COUNT (AUTO) 5.5 K/uL (4.8-10.8)
[2017-02-22 07:02] LABS: ANION GAP 9.4 (8-16); CALCIUM 8.6 mg/dL (8.5-10.1); CARBON DIOXIDE 29.5 mmol/L (21-32); CREATININE 1.1 mg/dL (0.6-1.3); POTASSIUM 3.9 mmol/L (3.5-5.1)
[2017-02-22] MEDS ORDERED: FUROSEMIDE 40 MG/4 ML VIAL IVP SCH (07:39)
[2017-02-22 08:00] VITALS: BP 128/85
[2017-02-22 08:48] LABS: MAGNESIUM 1.8 mg/dL (1.8-2.4); PHOSPHORUS 3.6 mg/dL (2.5-4.9)
[2017-02-22] MEDS: AMYLASE/LIPASE/PROTEASE 1 CAPDR PO SCH ×2 (08:51→12:00)
[2017-02-22] MEDS: MAGNESIUM OXIDE 400 MG TAB PO SCH (08:52)
[2017-02-22] MEDS: LISINOPRIL 10 MG TAB PO SCH (08:52)
[2017-02-22] MEDS ORDERED: SODIUM CHLORIDE 1 GM TAB PO SCH (09:00)
[2017-02-22] MEDS: INSULIN DETEMIR 100 UNITS/ML 10 ML VIAL SUBQ SCH (09:00)
[2017-02-22] MEDS ORDERED: CIPR500T4 PO (09:01)
[2017-02-22] MEDS ORDERED: SACC250C4 PO (09:01)
[2017-02-22] MEDS: PANTOPRAZOLE 40 MG INJ VIAL IVP SCH (09:38)
[2017-02-22] MEDS: FOLIC ACID 1 MG TAB PO SCH (09:38)
[2017-02-22] MEDS: SPIRONOLACTONE 25 MG TAB PO SCH (09:39)
[2017-02-22] MEDS: MULTIVITAMIN/MINERALS 1 TAB PO SCH (09:39)
[2017-02-22] MEDS: METOPROLOL 25 MG TAB PO SCH (09:39)
[2017-02-22] MEDS: NICOTINE TRANSD SYS 21 MG/24 HR PATCH TD SCH (09:40)
--- NOTE | 2017-02-22 10:24 | NUR ---
FAXED CONCURRENT REVIEW TO [facility] [phone] PHONE JOSE [phone]
--- NOTE | 2017-02-22 10:42 | NUR ---
SPOKE WITH JESSA FROM [facility] , PHONE [phone], AND FAXED ORDER, FACE SHEET AND H&P TO HER AT [phone]. THEY WILL FOLLOW THIS PATIENT.
--- NOTE | 2017-02-22 14:30 | NUR ---
PT D/C HOME VIA W/C ACCOMPANIED BY FAMILY MEMBER.D/C INSTRUCTIONS GIVEN AND UNDERSTOOD.IV DCD.
== END 2017-02-22 14:55 | disposition home health service (06) | DRG 380 ==
LOC: MED 16:43 → MTU 21:09
PROVIDERS: ADMIT Family Medicine; ATTEND Family Medicine
PROC: 0JBP0ZZ Excision of Left Lower Leg Subcutaneous Tissue and Fascia, Open Approach (ICD-10-PCS; 2017-02-20)
PROC: 0JBQ0ZZ Excision of Right Foot Subcutaneous Tissue and Fascia, Open Approach (ICD-10-PCS; 2017-02-20)
PROC: 0JBQ0ZX Excision of Right Foot Subcutaneous Tissue and Fascia, Open Approach, Diagnostic (ICD-10-PCS; 2017-02-20)
PROC: 0JBN0ZZ Excision of Right Lower Leg Subcutaneous Tissue and Fascia, Open Approach (ICD-10-PCS; 2017-02-20)
PROC: 0HBLXZX Excision of Left Lower Leg Skin, External Approach, Diagnostic (ICD-10-PCS; 2017-02-20)
PROC: 0JBP0ZX Excision of Left Lower Leg Subcutaneous Tissue and Fascia, Open Approach, Diagnostic (ICD-10-PCS; 2017-02-20)
PROC: 0HBKXZX Excision of Right Lower Leg Skin, External Approach, Diagnostic (ICD-10-PCS; 2017-02-20)
PROC: 0JBR0ZZ Excision of Left Foot Subcutaneous Tissue and Fascia, Open Approach (ICD-10-PCS; principal; 2017-02-20 12:15)
DX: E11.621 Type 2 diabetes mellitus with foot ulcer (principal); L97.529 Non-pressure chronic ulcer of other part of left foot with unspecified severity; L97.519 Non-pressure chronic ulcer of other part of right foot with unspecified severity; I50.33 Acute on chronic diastolic (congestive) heart failure; E11.40 Type 2 diabetes mellitus with diabetic neuropathy, unspecified; D72.1 Eosinophilia; E11.65 Type 2 diabetes mellitus with hyperglycemia; I11.9 Hypertensive heart disease without heart failure; E87.1 Hypo-osmolality and hyponatremia; B96.5 Pseudomonas (aeruginosa) (mallei) (pseudomallei) as the cause of diseases classified elsewhere; K86.1 Other chronic pancreatitis; I83.008 Varicose veins of unspecified lower extremity with ulcer other part of lower leg; L03.115 Cellulitis of right lower limb; G60.9 Hereditary and idiopathic neuropathy, unspecified; J44.9 Chronic obstructive pulmonary disease, unspecified; G89.29 Other chronic pain; K21.9 Gastro-esophageal reflux disease without esophagitis; D47.3 Essential (hemorrhagic) thrombocythemia; D50.0 Iron deficiency anemia secondary to blood loss (chronic); L03.116 Cellulitis of left lower limb; M47.894 Other spondylosis, thoracic region; E87.8 Other disorders of electrolyte and fluid balance, not elsewhere classified; F10.21 Alcohol dependence, in remission; E83.39 Other disorders of phosphorus metabolism; E83.42 Hypomagnesemia; Z96.649 Presence of unspecified artificial hip joint; Z88.6 Allergy status to analgesic agent; Z88.8 Allergy status to other drugs, medicaments and biological substances; Z91.018 Allergy to other foods; Z83.3 Family history of diabetes mellitus; Z56.0 Unemployment, unspecified; Z90.49 Acquired absence of other specified parts of digestive tract
CPT/HCPCS: 36415; 71010; 73620; 80048; 80053; 80305; 81003; 82550; 82553; 82607; 82728; 82746; 82948; 83036; 83540; 83605; 83735; 83874; 83880; 83930; 83935; 84100; 84300; 84443; 84484; 84550; 85025; 85045; 85610; 85730; 87040; 87070; 87081; 87186; 88304; 93925; 93970; 96365; 96375; 99285; C9113; J1644; J1815; J1885; J1940; J2270; J2405; J2543; J2704; J3010; J3475; J3490; J7030; J7042; J7060; Q0092